=== PATIENT | female | born 1990 | race Caucasian/White ===

== ENCOUNTER 2020-12-29 13:36 | Inpatient (IN) | payer OTHER, SELFPAY ==
[~2020-12-29] VITALS: Ht 162.6 cm; Wt 104.8 kg
[2020-12-29 14:00] VITALS: BP 126/67
[2020-12-29] MEDS ORDERED: BETAMETH ACET/BETAMETH NA PH 30 MG/5 ML VIAL IM SCH (14:00)
[2020-12-29] MEDS ORDERED: BETAMETH ACET/BETAMETH NA PH 30 MG/5 ML VIAL IM ONE (14:16)
[2020-12-29] MEDS ORDERED: MAG SULF 20 GM/H2O PREMIX DRIP 500 ML IV ONE (14:17)
[2020-12-29] MEDS: LACTATED RINGERS 1,000 ML IV SCH (14:28)
[2020-12-29] MEDS ORDERED: ASPIRIN 81 MG TAB.CHEW PO SCH (14:30)
[2020-12-29] MEDS: ASPIRIN 81 MG TAB.CHEW PO SCH (15:45)
--- NOTE | 2020-12-29 16:23 | NUR ---
PATIENT HAS BEEN SCREENED AND CATEGORIZED LOW NUTRITION RISK. PATIENT WILL BE SEEN WITHIN 7 DAYS OF ADMISSION. 01/05/[address]
[2020-12-29] MEDS: MAG SULF 20 GM/H2O PREMIX DRIP 500 ML IV SCH (22:58)
[2020-12-30] MEDS: LACTATED RINGERS 1,000 ML IV SCH ×2 (00:15→11:52)
[2020-12-30 07:19] LABS: ALBUMIN 2.6 g/dL (3.4-5.0); ANION GAP 14.7 (8-16); CREATININE 0.6 mg/dL (0.6-1.3); POTASSIUM 3.7 mmol/L (3.5-5.1); TOTAL BILIRUBIN 0.1 mg/dL (0.0-1.0)
[2020-12-30] MEDS: MAG SULF 20 GM/H2O PREMIX DRIP 500 ML IV SCH ×2 (10:02→20:01)
[2020-12-30] MEDS: ASPIRIN 81 MG TAB.CHEW PO SCH (11:45)
[2020-12-31] MEDS: MAG SULF 20 GM/H2O PREMIX DRIP 500 ML IV SCH (07:16)
[2020-12-31] MEDS: ASPIRIN 81 MG TAB.CHEW PO SCH (09:37)
[2021-01-02] MEDS ORDERED: ASPI-1822 PO (10:28)
[2021-01-02] MEDS ORDERED: PNV91TAB10 PO (10:28)
== END 2020-12-31 17:50 | disposition home or self-care (01) | DRG 566 ==
LOC: MLD 13:36
PROVIDERS: ADMIT Obstetrics & Gynecology; ATTEND Obstetrics & Gynecology
DX: O14.92 Unspecified pre-eclampsia, second trimester (principal); Z20.822 Contact with and (suspected) exposure to COVID-19; Z3A.26 26 weeks gestation of pregnancy
CPT/HCPCS: 36415; 80053; 83735; J0702; J3475